=== PATIENT | male | born 1950 | race Caucasian/White ===

== ENCOUNTER 2023-04-19 08:57 | Day surgery (SDC) | payer MEDICARE, BC ==
[2023-04-18 13:38] VITALS: BMI 23.7
[2023-04-19 10:17] VITALS: TEMP 98.1
[2023-04-19 11:21] LABS: CSF Source CSF; Clarity Clear (Clear); Tube # 4
[2023-04-19 11:38] LABS: CSF RBC Count - Manual 898 /cu.mm (None Seen); CSF WBC/NonHematics Count-Man 0 /cu.mm (0-5)
[2023-04-19 12:09] VITALS: BP 130/78
[2023-04-19 12:20] LABS: CSF, Glucose 89 mg/dl (40-70); CSF, Protein 33 mg/dL (15-40)
== END 2023-04-19 12:00 | disposition home or self-care (01) ==
LOC: RAD 08:57
PROVIDERS: ATTEND Surgery
DX: G91.2 (Idiopathic) normal pressure hydrocephalus (principal)
CPT/HCPCS: 62270; 82945; 84157; 87070; 87205; 89051

== ENCOUNTER 2023-05-17 11:28 | Outpatient (CLI) | payer MEDICARE, BC ==
[2023-05-17 12:50] LABS: Mean Corpuscular HGB CONC 33.8 g/dL (32.0-36.0); Mean Corpuscular Hemoglobin 33.1 pg (27.0-33.0); Mean Platelet Volume 9.8 fl (7.4-10.4); Platelet Count 279 10x3/uL (150-450); RBC Distribution Width 13.6 % (11.5-14.5); Red Blood Cell (RBC) Count 3.93 10x6/uL (4.32-5.72); White Blood Cell (WBC) Count 7.5 10x3/uL (3.5-10.5)
[2023-05-17 13:12] LABS: Anion Gap 11 mmol/L (10-20); BUN (Urea Nitrogen) 23 mg/dL (8.4-25.7); Calc. Creatinine Clearance 0 mL/min (70-130); Calcium 8.6 mg/dL (7.8-10.44); Carbon Dioxide 27 mmol/L (23-31); Chloride 102 mmol/L (98-107); Estimated GFR 82; Glucose 176 mg/dL (83-110); PTT 25.6 sec (22.0-33.0); Potassium 4.2 mmol/L (3.5-5.1); Prothrombin Time 10.3 sec (9.5-12.1); Sodium 136 mmol/L (136-145)
== END 2023-05-17 11:29 | disposition home or self-care (01) ==
LOC: LABBT 11:28
PROVIDERS: ATTEND Surgery
DX: Z01.818 Encounter for other preprocedural examination (principal); G91.2 (Idiopathic) normal pressure hydrocephalus
CPT/HCPCS: 80048; 85027; 85610; 85730; 93005; 93010

== ENCOUNTER 2023-06-24 22:25 | Inpatient (IN) | payer MEDICARE, BC ==
[2023-06-24 23:30] LABS: #Basophils 0.1 thou/uL (0.0-0.2); #Eosinphils 0.2 thou/uL (0.0-0.7); #Monocytes 0.6 thou/uL (0.11-0.59); #Neutrophils 3.8 thou/uL (1.40-6.50); %Basophils 0.8 % (0.0-1.0); %Eosinophils 3.7 % (0.0-10.0); %Lymphocytes 21.2 % (21.0-51.0); %Monocytes 9.5 % (0.0-10.0); %Neutrophils 64.5 % (42.0-75.0); Hematocrit 34.9 % (42.0-52.0); Hemoglobin 11.6 g/dL (14.0-18.0); Mean Corpuscular HGB CONC 33.2 g/dL (32.0-36.0); Mean Corpuscular Hemoglobin 33.4 pg (27.0-31.0); Mean Corpuscular Volume 100.6 fl (78.0-98.0); Mean Platelet Volume 9.6 fL (7.4-10.4); Platelet Count 259 10x3/uL (130-400); Red Blood Cell (RBC) Count 3.47 mill/uL (4.70-6.10); White Blood Cell (WBC) Count 5.9 10x3/uL (4.8-10.8)
[2023-06-24] MEDS ORDERED: Calcium Carbonate 500 MG ChewTAB PO PRN (23:41)
[2023-06-24] MEDS ORDERED: Senokot S 8.6-50 MG TAB PO PRN (23:41)
[2023-06-24] MEDS ORDERED: Ondansetron ODT 4 MG TAB PO PRN (23:41)
[2023-06-24 23:52] LABS: ALT (SGPT) 24 U/L (8-55); AST (SGOT) 21 U/L (5-34); Albumin 3.3 g/dL (3.4-4.8); Alkaline Phosphatase 66 U/L (40-110); Anion Gap 12 mmol/L (10-20); BUN (Urea Nitrogen) 19 mg/dL (8.4-25.7); Bilirubin, Total 0.2 mg/dL (0.2-1.2); Calc. Creatinine Clearance 0 mL/min (70-130); Calcium 8.6 mg/dL (7.8-10.44); Carbon Dioxide 27 mmol/L (23-31); Chloride 102 mmol/L (98-107); Estimated GFR 92; Globulin 2.3 g/dL (2.4-3.5); Glucose 175 mg/dL (83-110); Protein, Total 5.6 g/dL (5.8-8.1); Sodium 137 mmol/L (136-145)
[2023-06-25] MEDS ORDERED: Acetaminophen 500 MG TAB ONE (00:16)
[2023-06-25 03:58] VITALS: BMI 20.8
[2023-06-25] MEDS ORDERED: Glucagon 1 MG/ML KIT IM PRN (04:41)
[2023-06-25] MEDS ORDERED: Dextrose 5% in Water 1,000 ML IV PRN (04:41)
[2023-06-25] MEDS ORDERED: Dextrose 50% Abboject 50 ML SYRINGE SLOW IVP PRN (04:41)
[2023-06-25] MEDS ORDERED: Ondansetron ODT 8 MG TAB SL PRN (08:36)
[2023-06-25] MEDS: metFORMIN 500 MG TAB PO SCH ×2 (08:57→20:29)
[2023-06-25] MEDS: Tamsulosin HCl 0.4 MG CAP PO SCH (08:58)
[2023-06-25] MEDS: DULoxetine 30 MG CAP PO SCH (08:58)
[2023-06-25] MEDS: Famotidine 20 MG TAB PO SCH ×2 (08:58→20:28)
[2023-06-25] MEDS: Empagliflozin 25 MG TAB PO SCH (08:58)
[2023-06-25] MEDS: Folic Acid 1 MG TAB PO SCH (08:58)
[2023-06-25] MEDS ORDERED: ALPHA LIPOIC ACID 200 MG PO SCH (09:00)
[2023-06-25] MEDS ORDERED: Non-Formulary Item 1 EACH (Metformin Hcl [Metformin Hcl] 1,000 MG Tablet) PO SCH (09:00)
[2023-06-25] MEDS ORDERED: Tamsulosin HCl 0.4 MG CAP PO SCH (09:00)
[2023-06-25 16:24] LABS: Bacteria/HPF None Seen HPF (None Seen); Bilirubin Negative (Negative); Blood, Urine Negative (Negative); CAUTI Indications for Culture Alt mental st,lethar; Clarity Clear (Clear); Glucose, Urine (Dipstick) Greater than 1000 mg/dL (Negative); Ketone, Urine Negative (Negative); Leukocyte Negative Leu/uL (Negative); Nitrite Negative (Negative); Protein, Urine (Dipstick) Negative (Neg-Trace); RBC/HPF 0-3 HPF (0-3); Specific Gravity, Urine 1.016 (1.002-1.036); Squamous Epithelial None Seen HPF (0-3); Urobilinogen Normal mg/dL (Less than 2); WBC/HPF None Seen HPF (0-3); pH, Urine 6.5 (5.0-9.0)
[2023-06-25 16:29] LABS: Urine Culture Reflex No No
[2023-06-25] MEDS: glipiZIDE 10 MG TAB PO SCH (20:28)
[2023-06-25] MEDS: Melatonin 3 MG TAB PO PRN (20:29)
[2023-06-25] MEDS: Magnesium Oxide 400 MG TAB PO SCH (20:29)
[2023-06-25] MEDS: Acetaminophen 325 MG TAB PO PRN (20:33)
[2023-06-25] MEDS ORDERED: Non-Formulary Item 1 EACH (Magnesium Oxide [Magnesium] 400 MG Tablet) PO SCH (21:00)
[2023-06-26] MEDS: Famotidine 20 MG TAB PO SCH ×2 (08:35→20:53)
[2023-06-26] MEDS: Empagliflozin 25 MG TAB PO SCH (08:36)
[2023-06-26] MEDS: Tamsulosin HCl 0.4 MG CAP PO SCH (08:36)
[2023-06-26] MEDS: metFORMIN 500 MG TAB PO SCH ×2 (08:36→20:53)
[2023-06-26] MEDS: DULoxetine 30 MG CAP PO SCH (08:36)
[2023-06-26] MEDS: Folic Acid 1 MG TAB PO SCH (08:36)
[2023-06-26] MEDS: Acetaminophen 325 MG TAB PO PRN (13:16)
[2023-06-26] MEDS: ALPHA LIPOIC ACID 200 MG PO SCH (13:19)
[2023-06-26] MEDS: glipiZIDE 10 MG TAB PO SCH (20:53)
[2023-06-26] MEDS: Magnesium Oxide 400 MG TAB PO SCH (20:53)
[2023-06-26] MEDS: Melatonin 3 MG TAB PO PRN (20:53)
[2023-06-27] MEDS: metFORMIN 500 MG TAB PO SCH ×2 (09:24→20:41)
[2023-06-27] MEDS: Famotidine 20 MG TAB PO SCH ×2 (09:25→20:41)
[2023-06-27] MEDS: Empagliflozin 25 MG TAB PO SCH (09:25)
[2023-06-27] MEDS: Tamsulosin HCl 0.4 MG CAP PO SCH (09:25)
[2023-06-27] MEDS: DULoxetine 30 MG CAP PO SCH (09:25)
[2023-06-27] MEDS: Acetaminophen 325 MG TAB PO PRN (09:25)
[2023-06-27] MEDS: Folic Acid 1 MG TAB PO SCH (09:25)
[2023-06-27] MEDS: glipiZIDE 10 MG TAB PO SCH (20:41)
[2023-06-27] MEDS: Magnesium Oxide 400 MG TAB PO SCH (20:42)
[2023-06-27] MEDS: Melatonin 3 MG TAB PO PRN (20:42)
[2023-06-28] MEDS ORDERED: fentaNYL PF 100 MCG/2 ML SYRINGE ONE (06:53)
[2023-06-28] MEDS ORDERED: Bacitracin Zinc Ointment 30 gm TUBE ONE (07:04)
[2023-06-28] MEDS ORDERED: EPINEPHrine 1 MG/ML AMP ONE (07:04)
[2023-06-28] MEDS ORDERED: Lidocaine 1% (PF) 30 ML VIAL ONE (07:04)
[2023-06-28] MEDS ORDERED: Thrombin 5000 UNITS/5 ML VIAL ONE (07:04)
[2023-06-28] MEDS ORDERED: CEFAZOLIN 2 GM VIAL ONE (07:25)
[2023-06-28] MEDS ORDERED: Sodium Chloride 0.9% 100 ML ONE (07:25)
[2023-06-28] MEDS ORDERED: Rocuronium Bromide 10 MG/ML (10ML VIAL) ONE (07:39)
[2023-06-28] MEDS ORDERED: Lidocaine 1% PF 5 ML VIAL ONE (07:39)
[2023-06-28] MEDS ORDERED: Ondansetron PF 4 MG/2 ML Vial ONE ×2 (07:39→11:35)
[2023-06-28] MEDS ORDERED: Dexamethasone 20 MG/5 ML VIAL ONE (07:39)
[2023-06-28] MEDS ORDERED: NEOSTIGMINE 3 MG/3 ML SYR 3 MG/3 ML SYRINGE ONE (07:39)
[2023-06-28] MEDS ORDERED: Glycopyrrolate 0.2 MG/ML 5 ML SYRINGE ONE (07:39)
[2023-06-28] MEDS ORDERED: PROPOFOL 200 MG/20 ML VIAL ONE (07:39)
[2023-06-28] MEDS ORDERED: ePHEDrine Sulfate 50 MG/10 ML VIAL ONE (07:39)
[2023-06-28] MEDS ORDERED: Ondansetron PF 4 MG/2 ML Vial IVP PRN (08:54)
[2023-06-28] MEDS ORDERED: hydrALAZINE 20 MG/ML VIAL SLOW IVP PRN (08:54)
[2023-06-28] MEDS ORDERED: Morphine 2 MG/ML VIAL SLOW IVP PRN (08:54)
[2023-06-28] MEDS ORDERED: Promethazine HCl 25 MG/ML VIAL IVPB PRN (08:54)
[2023-06-28] MEDS ORDERED: HYDROmorphone 2 MG/ML VIAL SLOW IVP PRN (08:57)
[2023-06-28] MEDS ORDERED: Morphine Sulfate 2 MG/ML SYRINGE SLOW IVP PRN (08:57)
[2023-06-28] MEDS ORDERED: Ondansetron HCl/PF 4 MG/2 ML Vial IVP PRN (08:57)
[2023-06-28] MEDS ORDERED: Promethazine HCl 25 MG/ML VIAL IM PRN (08:57)
[2023-06-28] MEDS ORDERED: Acetaminophen/Codeine 30-300mg Tablet PO PRN (08:59)
[2023-06-28] MEDS ORDERED: HYDROcodone/Acetaminophen 5/325 mg Tablet PO PRN (08:59)
[2023-06-28] MEDS: Sodium Chloride 0.9% 1,000 ML IV SCH ×2 (13:18→21:44)
[2023-06-28] MEDS: Tamsulosin HCl 0.4 MG CAP PO SCH (13:18)
[2023-06-28] MEDS: Empagliflozin 25 MG TAB PO SCH (13:38)
[2023-06-28] MEDS: Folic Acid 1 MG TAB PO SCH (13:38)
[2023-06-28] MEDS: Famotidine 20 MG TAB PO SCH ×2 (13:38→20:07)
[2023-06-28] MEDS: metFORMIN 500 MG TAB PO SCH ×2 (13:39→20:07)
[2023-06-28] MEDS: DULoxetine 30 MG CAP PO SCH (13:39)
[2023-06-28] MEDS: CEFAZOLIN 2 GM in Sodium Chloride 0.9% 100 ML IVPB SCH (15:43)
[2023-06-28] MEDS: Acetaminophen 325 MG TAB PO PRN (15:48)
[2023-06-28] MEDS: glipiZIDE 10 MG TAB PO SCH (20:07)
[2023-06-28] MEDS: Magnesium Oxide 400 MG TAB PO SCH (20:07)
[2023-06-29] MEDS: CEFAZOLIN 2 GM in Sodium Chloride 0.9% 100 ML IVPB SCH ×2 (00:09→07:43)
[2023-06-29 04:37] LABS: #Eosinphils 0.1 thou/uL (0.0-0.7); #Neutrophils 7.9 thou/uL (1.40-6.50); %Basophils 0.4 % (0.0-1.0); %Eosinophils 1.4 % (0.0-10.0); %Lymphocytes 10.8 % (21.0-51.0); %Monocytes 9.9 % (0.0-10.0); Hematocrit 40.8 % (42.0-52.0); Mean Corpuscular HGB CONC 34.3 g/dL (32.0-36.0); Mean Corpuscular Hemoglobin 32.9 pg (27.0-31.0); Mean Platelet Volume 10.8 fL (7.4-10.4); Platelet Count 261 10x3/uL (130-400); RBC Distribution Width 13.1 % (11.5-14.5); Red Blood Cell (RBC) Count 4.25 mill/uL (4.70-6.10); White Blood Cell (WBC) Count 10.2 10x3/uL (4.8-10.8)
[2023-06-29 04:51] LABS: Anion Gap 16 mmol/L (10-20); BUN (Urea Nitrogen) 13 mg/dL (8.4-25.7); Calc. Creatinine Clearance 72 mL/min (70-130); Calcium 8.9 mg/dL (7.8-10.44); Carbon Dioxide 19 mmol/L (23-31); Chloride 105 mmol/L (98-107); Estimated GFR 88; Glucose 62 mg/dL (83-110); Potassium 4.2 mmol/L (3.5-5.1); Sodium 136 mmol/L (136-145)
[2023-06-29] MEDS ORDERED: levETIRAcetam 500 MG/5 ML VIAL SLOW IVP SCH (06:15)
[2023-06-29] MEDS: Sodium Chloride 0.9% 1,000 ML IV SCH ×2 (08:38→23:28)
[2023-06-29] MEDS: Famotidine 20 MG TAB PO SCH ×2 (08:40→20:38)
[2023-06-29] MEDS: metFORMIN 500 MG TAB PO SCH ×2 (08:40→20:38)
[2023-06-29] MEDS: Empagliflozin 25 MG TAB PO SCH (08:40)
[2023-06-29] MEDS: Tamsulosin HCl 0.4 MG CAP PO SCH (08:40)
[2023-06-29] MEDS: DULoxetine 30 MG CAP PO SCH (08:41)
[2023-06-29] MEDS: Folic Acid 1 MG TAB PO SCH (08:41)
[2023-06-29] MEDS: Acetaminophen 325 MG TAB PO PRN ×2 (10:33→20:37)
[2023-06-29] MEDS: levETIRAcetam 500 MG TAB PO SCH (20:37)
[2023-06-29] MEDS: glipiZIDE 10 MG TAB PO SCH (20:38)
[2023-06-29] MEDS: Melatonin 3 MG TAB PO PRN (20:38)
[2023-06-29] MEDS: Magnesium Oxide 400 MG TAB PO SCH (20:42)
[2023-06-30] MEDS: Folic Acid 1 MG TAB PO SCH (08:33)
[2023-06-30] MEDS: DULoxetine 30 MG CAP PO SCH (08:33)
[2023-06-30] MEDS: Tamsulosin HCl 0.4 MG CAP PO SCH (08:33)
[2023-06-30] MEDS: metFORMIN 500 MG TAB PO SCH ×2 (08:33→20:07)
[2023-06-30] MEDS: Famotidine 20 MG TAB PO SCH ×2 (08:33→20:07)
[2023-06-30] MEDS: Empagliflozin 25 MG TAB PO SCH (08:33)
[2023-06-30] MEDS: levETIRAcetam 500 MG TAB PO SCH ×2 (08:33→20:07)
[2023-06-30] MEDS: Acetaminophen 325 MG TAB PO PRN ×3 (09:34→20:12)
[2023-06-30] MEDS: Magnesium Oxide 400 MG TAB PO SCH (20:07)
[2023-06-30] MEDS: glipiZIDE 10 MG TAB PO SCH (20:07)
[2023-06-30] MEDS: Melatonin 3 MG TAB PO PRN (20:07)
[2023-07-01] MEDS: Acetaminophen 325 MG TAB PO PRN (05:17)
[2023-07-01] MEDS: Empagliflozin 25 MG TAB PO SCH (08:24)
[2023-07-01] MEDS: levETIRAcetam 500 MG TAB PO SCH (08:24)
[2023-07-01] MEDS: metFORMIN 500 MG TAB PO SCH (08:24)
[2023-07-01] MEDS: Tamsulosin HCl 0.4 MG CAP PO SCH (08:24)
[2023-07-01] MEDS: Famotidine 20 MG TAB PO SCH (08:24)
[2023-07-01] MEDS: DULoxetine 30 MG CAP PO SCH (08:24)
[2023-07-01] MEDS: Folic Acid 1 MG TAB PO SCH (08:24)
[2023-07-01 08:42] VITALS: BP 134/78; TEMP 97.3
== END 2023-07-01 11:43 | disposition home health service (06) | DRG 26 ==
LOC: ERS 22:25 → T4-A 23:00 → OBSVTOIN 06-25 11:58 → CCU 06-28 12:35 → SURG A 06-30 18:36
PROVIDERS: ADMIT Student in an Organized Health Care Education/Training Program; ATTEND Family Medicine
PROC: 00C Central Nervous System and Cranial Nerves, Extirpation (ICD-10-PCS; principal; 2023-06-28)
DX: G96.08 Other cranial cerebrospinal fluid leak (principal); G91.2 (Idiopathic) normal pressure hydrocephalus; G93.40 Encephalopathy, unspecified; Z98.2 Presence of cerebrospinal fluid drainage device; Z79.899 Other long term (current) drug therapy; I10 Essential (primary) hypertension; E11.9 Type 2 diabetes mellitus without complications; Z98.890 Other specified postprocedural states; D18.1 Lymphangioma, any site; G93.89 Other specified disorders of brain; R44.1 Visual hallucinations
CPT/HCPCS: 36415; 36416; 70450; 75809; 80048; 80053; 81001; 85025; 93005; 99285; J0171; J1100; J1953; J2001; J2405; J2704; J3490; J7050

== ENCOUNTER 2023-08-04 05:28 | Inpatient (IN) | payer MEDICARE, BC ==
[2023-08-04 10:50] LABS: Hemoglobin 13.4 g/dL (14.0-18.0); Mean Corpuscular HGB CONC 33.5 g/dL (32.0-36.0); Mean Corpuscular Volume 98.5 fl (78.0-98.0); Platelet Count 289 10x3/uL (130-400); RBC Distribution Width 13.5 % (11.5-14.5); Red Blood Cell (RBC) Count 4.06 mill/uL (4.70-6.10); White Blood Cell (WBC) Count 8.4 10x3/uL (4.8-10.8)
[2023-08-04 11:07] LABS: INR-International Normal Ratio 0.9; PTT 26.5 sec (22.9-36.1); Prothrombin Time 12.3 sec (12.0-14.7)
[2023-08-04 11:13] LABS: Anion Gap 18 mmol/L (10-20); BUN (Urea Nitrogen) 17 mg/dL (8.4-25.7); Calc. Creatinine Clearance 80 mL/min (70-130); Carbon Dioxide 24 mmol/L (23-31); Chloride 103 mmol/L (98-107); Estimated GFR 90; Glucose 131 mg/dL (83-110); Potassium 4.7 mmol/L (3.5-5.1); Sodium 140 mmol/L (136-145)
[2023-08-04] MEDS ORDERED: hydrALAZINE 20 MG/ML VIAL SLOW IVP PRN (13:07)
[2023-08-04] MEDS ORDERED: diphenhydrAMINE 50 MG CAP PO PRN (13:07)
[2023-08-04] MEDS ORDERED: Sodium Chloride 0.9% 0 ML ONE (13:08)
[2023-08-04] MEDS ORDERED: CEFAZOLIN 2 GM VIAL ONE (13:08)
[2023-08-04] MEDS ORDERED: Lorazepam 2 MG/ML VIAL SLOW IVP PRN (13:10)
[2023-08-04] MEDS ORDERED: HYDROcodone/Acetaminophen 5/325 mg Tablet PO PRN (13:10)
[2023-08-04] MEDS ORDERED: fentaNYL PF 100 MCG/2 ML SYRINGE ONE (13:12)
[2023-08-04] MEDS ORDERED: ePHEDrine Sulfate 50 MG/10 ML VIAL ONE (13:40)
[2023-08-04] MEDS ORDERED: Rocuronium Bromide 10 MG/ML (10ML VIAL) ONE (13:40)
[2023-08-04] MEDS ORDERED: Ondansetron PF 4 MG/2 ML Vial ONE (13:40)
[2023-08-04] MEDS ORDERED: PROPOFOL 200 MG/20 ML VIAL ONE (13:40)
[2023-08-04] MEDS ORDERED: levETIRAcetam 500 MG/5 ML VIAL SLOW IVP SCH (14:00)
[2023-08-04] MEDS ORDERED: Bacitracin Zinc Ointment 30 gm TUBE ONE (14:03)
[2023-08-04] MEDS ORDERED: levETIRAcetam 500 MG/5 ML VIAL ONE (14:03)
[2023-08-04] MEDS ORDERED: Thrombin 5000 UNITS/5 ML VIAL ONE (14:03)
[2023-08-04] MEDS ORDERED: Vancomycin 1 GM VIAL ONE (14:23)
[2023-08-04] MEDS ORDERED: SUGAMMADEX SODIUM 200 MG/2 ML VIAL ONE (14:28)
[2023-08-04] MEDS ORDERED: Promethazine HCl 25 MG/ML VIAL IM PRN (15:05)
[2023-08-04] MEDS ORDERED: Ondansetron HCl/PF 4 MG/2 ML Vial IVP PRN (15:05)
[2023-08-04] MEDS ORDERED: Insulin Regular 300 UNITS/3 ML VIAL SC PRN ×2 (15:09→15:30)
[2023-08-04] MEDS ORDERED: hydrALAZINE 20 MG/ML VIAL ONE (15:22)
[2023-08-04] MEDS ORDERED: fentaNYL 50 mcg/mL 1 mL Vial ONE ×3 (15:23→16:12)
[2023-08-04] MEDS ORDERED: Dextrose 50% Abboject 50 ML SYRINGE IVP PRN (15:30)
[2023-08-04] MEDS ORDERED: Glucagon 1 MG/ML KIT IM PRN (15:30)
[2023-08-04] MEDS ORDERED: Dextrose 5% in Water 1,000 ML IV PRN (15:30)
[2023-08-04] MEDS: Morphine 2 MG/ML VIAL SLOW IVP PRN ×2 (17:15→21:05)
[2023-08-04] MEDS: Sodium Chloride 0.9% 1,000 ML IV SCH (17:15)
[2023-08-04] MEDS: Ondansetron PF 4 MG/2 ML Vial IVP PRN (17:16)
[2023-08-04 17:41] VITALS: BMI 23.7
[2023-08-04] MEDS: metFORMIN 500 MG TAB PO SCH (18:01)
[2023-08-04] MEDS: glipiZIDE 10 MG TAB PO SCH (18:02)
[2023-08-04] MEDS: Acetaminophen/Codeine 30-300mg Tablet PO PRN (21:40)
[2023-08-04] MEDS: Magnesium Oxide 400 MG TAB PO SCH (21:41)
[2023-08-04] MEDS: CEFAZOLIN 2 GM in Sodium Chloride 0.9% 100 ML IVPB SCH (21:42)
[2023-08-04] MEDS: levETIRAcetam 500 MG/5 ML VIAL SLOW IVP SCH (21:42)
[2023-08-05] MEDS: Morphine 2 MG/ML VIAL SLOW IVP PRN ×2 (00:41→03:23)
[2023-08-05] MEDS: Acetaminophen 325 MG TAB PO PRN ×4 (00:42→19:54)
[2023-08-05] MEDS: Ondansetron PF 4 MG/2 ML Vial IVP PRN (03:23)
[2023-08-05 05:31] LABS: #Basophils 0.1 thou/uL (0.0-0.2); #Eosinphils 0.2 thou/uL (0.0-0.7); #Neutrophils 6.2 thou/uL (1.40-6.50); %Basophils 0.7 % (0.0-1.0); %Lymphocytes 11.4 % (21.0-51.0); %Monocytes 11.3 % (0.0-10.0); %Neutrophils 73.9 % (42.0-75.0); Hematocrit 36.6 % (42.0-52.0); Hemoglobin 12.1 g/dL (14.0-18.0); Mean Corpuscular HGB CONC 33.1 g/dL (32.0-36.0); Mean Corpuscular Volume 99.7 fl (78.0-98.0); Mean Platelet Volume 9.8 fL (7.4-10.4); Platelet Count 262 10x3/uL (130-400); RBC Distribution Width 13.7 % (11.5-14.5); Red Blood Cell (RBC) Count 3.67 mill/uL (4.70-6.10); White Blood Cell (WBC) Count 8.4 10x3/uL (4.8-10.8)
[2023-08-05 05:57] LABS: Anion Gap 13 mmol/L (10-20); BUN (Urea Nitrogen) 15 mg/dL (8.4-25.7); Calc. Creatinine Clearance 89 mL/min (70-130); Calcium 8.6 mg/dL (7.8-10.44); Carbon Dioxide 23 mmol/L (23-31); Chloride 104 mmol/L (98-107); Estimated GFR 92; Glucose 129 mg/dL (83-110); Potassium 3.9 mmol/L (3.5-5.1); Sodium 136 mmol/L (136-145)
[2023-08-05] MEDS: Sodium Chloride 0.9% 1,000 ML IV SCH ×2 (06:47→17:08)
[2023-08-05] MEDS: CEFAZOLIN 2 GM in Sodium Chloride 0.9% 100 ML IVPB SCH ×3 (06:50→21:18)
[2023-08-05] MEDS: Tamsulosin HCl 0.4 MG CAP PO SCH (08:42)
[2023-08-05] MEDS: Empagliflozin 25 MG TAB PO SCH (08:42)
[2023-08-05] MEDS: Folic Acid 1 MG TAB PO SCH (08:42)
[2023-08-05] MEDS: DULoxetine 30 MG CAP PO SCH (08:42)
[2023-08-05] MEDS: levETIRAcetam 500 MG/5 ML VIAL SLOW IVP SCH ×2 (08:42→19:56)
[2023-08-05] MEDS: metFORMIN 500 MG TAB PO SCH ×2 (08:42→17:22)
[2023-08-05] MEDS ORDERED: Sodium Chloride 0.9% 1,000 ML IV PRN (17:00)
[2023-08-05] MEDS: glipiZIDE 10 MG TAB PO SCH (17:22)
[2023-08-05] MEDS ORDERED: Morphine 2 MG/ML VIAL SLOW IVP PRN (17:28)
[2023-08-05] MEDS: Magnesium Oxide 400 MG TAB PO SCH (19:56)
[2023-08-06] MEDS: Acetaminophen 325 MG TAB PO PRN (01:20)
[2023-08-06] MEDS: CEFAZOLIN 2 GM in Sodium Chloride 0.9% 100 ML IVPB SCH ×3 (06:21→21:06)
[2023-08-06] MEDS: metFORMIN 500 MG TAB PO SCH ×2 (07:53→16:07)
[2023-08-06] MEDS: Tamsulosin HCl 0.4 MG CAP PO SCH (07:53)
[2023-08-06] MEDS: Folic Acid 1 MG TAB PO SCH (07:53)
[2023-08-06] MEDS: DULoxetine 30 MG CAP PO SCH (07:53)
[2023-08-06] MEDS: levETIRAcetam 500 MG/5 ML VIAL SLOW IVP SCH ×2 (07:53→21:06)
[2023-08-06] MEDS: Empagliflozin 25 MG TAB PO SCH (07:53)
[2023-08-06] MEDS: Acetaminophen/Codeine 30-300mg Tablet PO PRN ×2 (09:42→16:40)
[2023-08-06] MEDS: glipiZIDE 10 MG TAB PO SCH (16:07)
[2023-08-06] MEDS: Magnesium Oxide 400 MG TAB PO SCH (21:06)
[2023-08-07] MEDS: Acetaminophen 325 MG TAB PO PRN ×3 (00:42→11:15)
[2023-08-07] MEDS: CEFAZOLIN 2 GM in Sodium Chloride 0.9% 100 ML IVPB SCH ×3 (06:20→22:00)
[2023-08-07] MEDS: Folic Acid 1 MG TAB PO SCH (08:26)
[2023-08-07] MEDS: levETIRAcetam 500 MG/5 ML VIAL SLOW IVP SCH ×2 (08:26→20:36)
[2023-08-07] MEDS: DULoxetine 30 MG CAP PO SCH (08:26)
[2023-08-07] MEDS: Tamsulosin HCl 0.4 MG CAP PO SCH (08:26)
[2023-08-07] MEDS: Empagliflozin 25 MG TAB PO SCH (08:26)
[2023-08-07] MEDS: metFORMIN 500 MG TAB PO SCH ×2 (08:26→18:01)
[2023-08-07] MEDS: glipiZIDE 10 MG TAB PO SCH (18:01)
[2023-08-07] MEDS: Melatonin 3 MG TAB PO PRN (20:35)
[2023-08-07] MEDS: Magnesium Oxide 400 MG TAB PO SCH (20:35)
[2023-08-08] MEDS: Acetaminophen/Codeine 30-300mg Tablet PO PRN (01:18)
[2023-08-08] MEDS: CEFAZOLIN 2 GM in Sodium Chloride 0.9% 100 ML IVPB SCH ×3 (06:48→21:29)
[2023-08-08] MEDS: DULoxetine 30 MG CAP PO SCH (08:51)
[2023-08-08] MEDS: Folic Acid 1 MG TAB PO SCH (08:51)
[2023-08-08] MEDS: levETIRAcetam 500 MG/5 ML VIAL SLOW IVP SCH ×2 (08:51→21:29)
[2023-08-08] MEDS: Empagliflozin 25 MG TAB PO SCH (08:51)
[2023-08-08] MEDS: metFORMIN 500 MG TAB PO SCH ×2 (08:51→17:59)
[2023-08-08] MEDS: Tamsulosin HCl 0.4 MG CAP PO SCH (08:52)
[2023-08-08] MEDS: Acetaminophen 325 MG TAB PO PRN (11:57)
[2023-08-08] MEDS: Ondansetron PF 4 MG/2 ML Vial IVP PRN (12:05)
[2023-08-08] MEDS: glipiZIDE 10 MG TAB PO SCH (15:19)
[2023-08-08] MEDS: Magnesium Oxide 400 MG TAB PO SCH (21:29)
[2023-08-09] MEDS: CEFAZOLIN 2 GM in Sodium Chloride 0.9% 100 ML IVPB SCH ×3 (06:29→21:30)
[2023-08-09] MEDS: metFORMIN 500 MG TAB PO SCH ×2 (08:11→16:55)
[2023-08-09] MEDS: levETIRAcetam 500 MG/5 ML VIAL SLOW IVP SCH ×2 (08:11→20:30)
[2023-08-09] MEDS: Empagliflozin 25 MG TAB PO SCH (08:12)
[2023-08-09] MEDS: DULoxetine 30 MG CAP PO SCH (08:12)
[2023-08-09] MEDS: Folic Acid 1 MG TAB PO SCH (08:12)
[2023-08-09] MEDS: Tamsulosin HCl 0.4 MG CAP PO SCH (08:12)
[2023-08-09] MEDS: Acetaminophen 325 MG TAB PO PRN ×2 (11:12→16:55)
[2023-08-09] MEDS: glipiZIDE 10 MG TAB PO SCH (16:55)
[2023-08-09] MEDS: Ondansetron PF 4 MG/2 ML Vial IVP PRN (21:30)
[2023-08-10] MEDS: Acetaminophen/Codeine 30-300mg Tablet PO PRN ×2 (01:20→20:26)
[2023-08-10] MEDS: CEFAZOLIN 2 GM in Sodium Chloride 0.9% 100 ML IVPB SCH (05:00)
[2023-08-10] MEDS: Magnesium Oxide 400 MG TAB PO SCH ×2 (06:55→20:28)
[2023-08-10] MEDS: Empagliflozin 25 MG TAB PO SCH (09:22)
[2023-08-10] MEDS: metFORMIN 500 MG TAB PO SCH ×3 (09:22→16:29)
[2023-08-10] MEDS: Tamsulosin HCl 0.4 MG CAP PO SCH (09:43)
[2023-08-10] MEDS: Folic Acid 1 MG TAB PO SCH (09:43)
[2023-08-10] MEDS: DULoxetine 30 MG CAP PO SCH (09:43)
[2023-08-10] MEDS: levETIRAcetam 500 MG/5 ML VIAL SLOW IVP SCH ×2 (09:43→21:11)
[2023-08-10] MEDS ORDERED: Docusate 100 MG CAP PO PRN (12:52)
[2023-08-10] MEDS: Acetaminophen 325 MG TAB PO PRN (14:49)
[2023-08-10] MEDS: glipiZIDE 10 MG TAB PO SCH (16:29)
[2023-08-11] MEDS: Acetaminophen 325 MG TAB PO PRN ×3 (03:22→18:34)
[2023-08-11] MEDS: levETIRAcetam 500 MG/5 ML VIAL SLOW IVP SCH ×2 (09:38→20:56)
[2023-08-11] MEDS: Folic Acid 1 MG TAB PO SCH (09:38)
[2023-08-11] MEDS: metFORMIN 500 MG TAB PO SCH ×3 (09:38→18:22)
[2023-08-11] MEDS: Tamsulosin HCl 0.4 MG CAP PO SCH (09:38)
[2023-08-11] MEDS: DULoxetine 30 MG CAP PO SCH (09:39)
[2023-08-11] MEDS: Empagliflozin 25 MG TAB PO SCH (09:40)
[2023-08-11] MEDS: glipiZIDE 10 MG TAB PO SCH (18:17)
[2023-08-11] MEDS: Acetaminophen/Codeine 30-300mg Tablet PO PRN (20:56)
[2023-08-11] MEDS: Magnesium Oxide 400 MG TAB PO SCH (20:56)
[2023-08-11] MEDS: Melatonin 3 MG TAB PO PRN (20:56)
[2023-08-12] MEDS: Folic Acid 1 MG TAB PO SCH (09:56)
[2023-08-12] MEDS: Tamsulosin HCl 0.4 MG CAP PO SCH (09:56)
[2023-08-12] MEDS: metFORMIN 500 MG TAB PO SCH (09:56)
[2023-08-12] MEDS: DULoxetine 30 MG CAP PO SCH (09:56)
[2023-08-12] MEDS: Empagliflozin 25 MG TAB PO SCH (09:56)
[2023-08-12] MEDS: Acetaminophen 325 MG TAB PO PRN (10:03)
[2023-08-12 10:47] VITALS: TEMP 98.4
[2023-08-12 14:02] VITALS: BP 129/79
== END 2023-08-12 17:26 | DRG 26 ==
LOC: SURG A 09:34 → EDSTATUS 13:38 → CCU 17:33 → SURG A 08-11 14:45
PROVIDERS: ADMIT Surgery; ATTEND Surgery
PROC: 00C43ZZ Extirpation of Matter from Intracranial Subdural Space, Percutaneous Approach (ICD-10-PCS; principal; 2023-08-04)
DX: I62.02 Nontraumatic subacute subdural hemorrhage (principal); G91.2 (Idiopathic) normal pressure hydrocephalus; G93.89 Other specified disorders of brain; Z79.899 Other long term (current) drug therapy; Z98.2 Presence of cerebrospinal fluid drainage device
CPT/HCPCS: 36415; 36416; 70450; 80048; 85025; 85027; 85610; 85730; 93005; 93010; 93970; J0360; J1815; J1953; J2272; J2405; J2704; J3010; J3370; J3490; J7050